=== PATIENT | male | born 1960 | race Caucasian/White ===

== ENCOUNTER 2016-08-13 08:59 | Day surgery (SDC) | payer OTHER ==
[~2016-08-13] VITALS: Ht 177.8 cm; Wt 93.2 kg
[~2016-08-13 08:59] MED LIST: ASPIRIN ADULT L81 M1 PO; ATORVASTATIN CA20 MG PO; METFORMIN HCL500 MG PO
--- NOTE | 2016-08-13 09:48 | NUR ---
PREOP INSTRUCTIONS GIVEN TO PATIENT. QUESTIONS ANSWERED. PATIENT VERBALIZES UNDERSTANDING. CONSENT CONFIRMED. NO PREOP MEDICATIONS. PATIENT RESTING COMFORTABLY. AT BEDSIDE. KB
--- NOTE | 2016-08-13 10:49 | Provider's Discharge Care Plan ---
Problem, Goal, Plan Problem List 1. S/P colonoscopy Goals: Screening Instructions: Follow up as needed, Take meds as directed, high fiber diet
--- NOTE | 2016-08-13 10:49 | Provider's Discharge Care Plan ---
Problem, Goal, Plan Problem List 1. S/P colonoscopy Goals: Screening Instructions: Follow up as needed, Take meds as directed, high fiber diet
--- NOTE | 2016-08-13 10:56 | Operative Report ---
Operative Report Date of Surgery: 08/13/16 Preoperate Diagnosis: family history colon cancerHistory of colon polyps Postoperative Diagnosis: normal colonoscopy Surgeon: Joe Rodriguez MD [employer] Consultant Surgeon: none Procedure Performed: Colonoscopy Anesthesia: TIVA Indications: 56-year-old male who underwent a colonoscopy in 2011 and had a small polyp removed (hyperplastic) Further diagnosis of colon cancer in her 70s. The patient is asymptomatic FINDINGS: Normal appearing cecum, ascending, transverse, descending, sigmoid, and rectal vault Surgical Technique: Patient brought to the operating room. Placed in the left lateral decubitus position. Administered TIVA by anesthesia. After proper anesthesia, digital examination was performed. No stenosis or masses appreciated. This was followed by the passage of the fiberoptic flexible Olympus colonoscope. Without difficulty the scope negotiated to the cecum. Cecum was identified by anatomical landmarks and anterior abdominal wall ballottement. Withdrawing the scope before mentioned findings noted. The scope was retroflexed view of her pain. No pathology identified the scope was completely withdrawn. Patient tolerated procedure well and was transferred to recovery room. There were no intraoperative or anesthetic complications. COMPLICATIONS: None CONDITION: Stable to post anesthesia recovery room SPECIMENS: None
--- NOTE | 2016-08-13 10:58 | NUR ---
TO PACU AWAKES EASILY TO VOICE, VSS AND IV INFUSING. GOOD RESPIR EFORT.
--- NOTE | 2016-08-13 11:32 | NUR ---
PATIENT RETURNED TO THE FLOOR AWAKE AND TALKING. TOLERATING PO. VSS. KB
--- NOTE | 2016-08-13 12:14 | NUR ---
UP IN ROOM INDEPENDENTLY. TOLERATING PO. DISCHARGE INSTRUCTIONS GIVEN TO PATIENT AND HIS . QUESITONS ANSWERED. PATIENT VERBALIZES UNDERSTANDING.. DISCHARGED HOME WITH HIS . KB
== END 2016-08-13 12:21 | disposition home or self-care (01) ==
LOC: SDC SRH 08:59 → OB SRH 09:02 → SDC SRH 10:45 → OR SRH 11:00 → SDC SRH 11:00
PROVIDERS: Specialist
PROC: 0DJD8ZZ Inspection of Lower Intestinal Tract, Via Natural or Artificial Opening Endoscopic (ICD-10-PCS; principal; 2016-08-13 10:45)
DX: Z12.11 Encounter for screening for malignant neoplasm of colon (principal); Z80.0 Family history of malignant neoplasm of digestive organs; Z86.010 Personal history of colon polyps; I10 Essential (primary) hypertension; E11.9 Type 2 diabetes mellitus without complications; Z79.84 Long term (current) use of oral hypoglycemic drugs